=== PATIENT | female | born 1945 | race Caucasian/White ===

== ENCOUNTER 2022-06-21 10:48 | Outpatient (CLI) | payer MEDICARE, SELFPAY ==
[2022-06-21 10:08] LABS: Albumin* 4.4 g/dL (3.3-5.0)
[2022-06-21 10:09] LABS: Chloride* 103 mmol/L (96-114); Potassium* 3.9 mmol/L (3.6-5.1); Sodium* 139 mmol/L (135-149)
[2022-06-21 10:11] LABS: Alkaline Phosphatase* 39 U/L (40-150); Aspartate Amino Transferase* 28 U/L (12-35); Bilirubin Total* 0.6 mg/dL (0.1-1.5); Blood Urea Nitrogen* 12 mg/dL (7-30); Carbon Dioxide* 30 mmol/L (20-32); Cholesterol* 307 mg/dL (90-199); Creatinine* 0.7 mg/dL (0.5-1.5); Estimated Glomerular Filt Rate 91 ml/min; Total Protein* 7.1 g/dL (6.0-8.3)
[2022-06-21 10:12] LABS: Alanine Aminotransferase* 29 U/L (4-35); Calcium* 9.1 mg/dL (8.4-10.6); Glucose* 89 mg/dL (60-115); HDL Cholesterol* 91 mg/dL (>=50); LDL Cholesterol Calculated 189 mg/dL (<100); Triglycerides* 137 mg/dL (40-149)
[2022-06-21 10:19] LABS: Vitamin D 25 Hydroxy* 77 ng/mL (30-80)
== END 2022-06-21 10:49 | disposition home or self-care (01) ==
PROVIDERS: PCP Family Medicine; Visit Provider Family Medicine
DX: Z00.00 Encounter for general adult medical examination without abnormal findings (principal); E78.5 Hyperlipidemia, unspecified; M81.0 Age-related osteoporosis without current pathological fracture
CPT/HCPCS: 80053; 80061; 82306

== ENCOUNTER 2022-06-23 07:57 | Outpatient (CLI) | payer MEDICARE, SELFPAY ==
[2022-06-23 10:16] LABS: C Reactive Protein* < 0.5 mg/dL (0.5-1.0)
== END 2022-06-23 07:58 | disposition home or self-care (01) ==
PROVIDERS: PCP Family Medicine; Visit Provider Family Medicine
DX: Z00.00 Encounter for general adult medical examination without abnormal findings (principal); R30.0 Dysuria; R51.9 Headache, unspecified; E78.5 Hyperlipidemia, unspecified
CPT/HCPCS: 86140; 87086

== ENCOUNTER 2022-07-13 14:12 | Outpatient (CLI) | payer MEDICARE, SELFPAY ==
--- NOTE | 2022-07-13 14:30 | CRLHL7_ITS ---
For Patients: As a result of the Century Cures Act, medical imaging exams and procedure reports are released immediately into your electronic medical record. You may view this report before your referring provider. If you have questions, please contact your health care provider. DXA BONE MINERAL DENSITY STUDY Current height (in): 56.5. Weight (lb): 140.0. Menopause age: 57. Ethnicity: White. 1. Have you had a previous hip or vertebral fracture? No. 2. Have you had any fractures during your adult life which did not result from significant trauma (e.g., auto accident)? No. 3. Did either of your parents have a hip fracture? No. 4. Do you smoke? No. 5. Have you ever taken Glucocorticoids? No. 6. Do you have rheumatoid arthritis? No. 7. Do you have secondary osteoporosis? No. 8. Do you drink 3 or more alcoholic drinks per day? No. 9. Are you being treated for osteoporosis? Yes. 10. Have you ever taken any of the following medications: Actonel, Evista, Fosamax, Miacalcin, Reclast, Boniva, Forteo, HRT (i.e. estrogen/hormone therapy), Protelos, Prolia, Vitamin D, Calcium, other ??? please specify. ANSWER: Yes, Fosamax, vitamin D, calcium. 11. Do you have any of the following medical conditions: Anorexia or bulimia, asthma or emphysema, end stage renal disease, hyperparathyroidism, any seizure disorders, cancer, inflammatory bowel diseases, hysterectomy, other ??? please specify. ANSWER: No. 12. What was your maximum height (inches)? 68. 13. Do you perform weight bearing exercise regularly? Yes. 14. Do you regularly consume dairy products? No. 15. Do you drink caffeinated beverages? Yes. 16. At what age did your period start? 17. 17. Are you premenopausal? No. 18. How many full term pregnancies have you had? 5. 19. Have you ever missed your period for more than 6 months in a row (not including or menopause)? No. TECHNIQUE: Bone mineral density study was performed using the [employer]. FINDINGS: The results of the study expressed as bone mineral density (BMD) are as follows: Lumbar spine L1 to L4: BMD: 0.774 g/cm2. T-score: -2.5. Z-score: -0.1. Neck Left: BMD: 0.716 g/cm2. T-score: -1.2. Z-score: 0.9. Right: BMD: 0.747 g/cm2. T-score: -0.9. Z-score: 1.2. Total Left: BMD: 0.731 g/cm2. T-score: -1.7. Z-score: 0.1. Right: BMD: 0.782 g/cm2. T-score: -1.3. Z-score: 0.5. IMPRESSION: Osteoporosis. *Comparison exams done prior to 10/2019 were performed on different unit, [employer]. COMPARISON: Compared with scan of 02/25/2020, the bone mineral density has increased by 3.3 percent at the spine and increased by 3.7 percent at the hips. Compared with scan of 08/27/2017, the bone mineral density has increased by 0.5 percent at the spine and increased by 12.0 percent at the hip. ROBERTO ROWE MD Diagnostic/Nuclear Medicine Radiologist [email or web address] CY/bhe be/Dictated by: Roberto Rowe MD @ 07/13/2022 9:43:00 PM (Electronically Signed)
== END 2022-07-13 14:13 | disposition home or self-care (01) ==
PROVIDERS: PCP Family Medicine; Visit Provider Family Medicine
DX: M81.0 Age-related osteoporosis without current pathological fracture (principal)
CPT/HCPCS: 77080

== ENCOUNTER 2022-08-11 09:51 | Outpatient (CLI) | payer MEDICARE, SELFPAY ==
--- NOTE | 2022-08-11 10:15 | CRLHL7_ITS ---
For Patients: As a result of the Century Cures Act, medical imaging exams and procedure reports are released immediately into your electronic medical record. You may view this report before your referring provider. If you have questions, please contact your health care provider. BILATERAL SCREENING MAMMOGRAM WITH COMPUTER-AIDED DETECTION AND TOMOSYNTHESIS TECHNIQUE: CC and MLO views were obtained. These mammographic images have been obtained using full-field digital technique. These mammographic images were interpreted with the benefit of computer-aided detection. Breast Tomosynthesis was used in this interpretation. COMPARISON FILM: 02/25/21, 02/25/20, 11/27/18. FINDINGS: There are scattered areas of fibroglandular density IMPRESSION: There is no radiographic evidence for malignancy. ASSESSMENT: BI-RADS Category 1: Negative RECOMMENDATION: Routine screening mammogram in 1 year. A lay language report of this examination will be provided to the patient. Roberto Boo M.D. Diagnostic/Nuclear Medicine Radiologist [email or web address] FRANCISCO J/Dictated by: Roberto Boo MD @ 08/11/2022 10:23:00 AM (Electronically Signed)
== END 2022-08-11 09:52 | disposition home or self-care (01) ==
LOC: MAMMO 09:52
PROVIDERS: PCP Family Medicine; Visit Provider Family Medicine
DX: Z12.31 Encounter for screening mammogram for malignant neoplasm of breast (principal)
CPT/HCPCS: 77063; 77067

== ENCOUNTER 2023-12-12 16:04 | Outpatient (CLI) | payer MEDICARE, SELFPAY | END 2023-12-12 16:05 | disposition home or self-care (01) | LOC: NFLDREF 16:05 | PROVIDERS: PCP Family Medicine; Visit Provider Registered Nurse | DX: R51.9 Headache, unspecified (principal); E78.5 Hyperlipidemia, unspecified | CPT/HCPCS: 86618 ==

== ENCOUNTER 2023-12-14 12:47 | Outpatient (CLI) | payer MEDICARE, SELFPAY ==
--- NOTE | 2023-12-14 13:00 | CRLHL7_ITS ---
For Patients: As a result of the Century Cures Act, medical imaging exams and procedure reports are released immediately into your electronic medical record. You may view this report before your referring provider. If you have questions, please contact your health care provider. INDICATION: Trauma. Headaches. TECHNIQUE: Noncontrast axial CT of the head is submitted. No comparisons. FINDINGS: Mild cerebral atrophy. The ventricles, sulci and gyri are of normal size, shape and contour for age and degree of atrophy. Midline structures are centrally located. No convincing evidence of suspicious intra- or extra-axial fluid collections. Minimal patchy regions of decreased attenuation within the periventricular and subcortical white matter of both cerebral hemispheres. IMPRESSION: 1. No radiographic evidence of acute intracranial abnormalities. 2. Mild cerebral atrophy. 3. Minimal supratentorial white matter changes that are non-specific, but statistically most likely related to chronic small vessel ischemic disease. Please note that all CT scans at this facility use dose modulation, iterative reconstruction, and/or weight-based dosing when appropriate to reduce radiation dose to as low as reasonably achievable. Dictated by Geoff Merritt MD @ 12/14/2023 2:08:00 PM (Electronically Signed)
== END 2023-12-14 12:48 | disposition home or self-care (01) ==
LOC: CT 12:49
PROVIDERS: PCP Family Medicine; Visit Provider Registered Nurse
DX: R51.9 Headache, unspecified (principal); G31.9 Degenerative disease of nervous system, unspecified; S09.90XA Unspecified injury of head, initial encounter
CPT/HCPCS: 70450

== ENCOUNTER 2023-12-21 08:33 | Outpatient (CLI) | payer MEDICARE, SELFPAY | END 2023-12-21 08:34 | disposition home or self-care (01) | LOC: NFLDREF 12-25 15:33 | PROVIDERS: PCP Family Medicine; Referring Provider Family Medicine; Visit Provider Physician Assistant | DX: N39.0 Urinary tract infection, site not specified (principal); B96.20 Unspecified Escherichia coli [E. coli] as the cause of diseases classified elsewhere | CPT/HCPCS: 87086; 87186 ==

== ENCOUNTER 2024-07-11 08:23 | Outpatient (CLI) | payer MEDICARE, SELFPAY | END 2024-07-11 08:24 | disposition home or self-care (01) | PROVIDERS: PCP Registered Nurse; Visit Provider Registered Nurse | DX: E78.5 Hyperlipidemia, unspecified (principal); Z13.29 Encounter for screening for other suspected endocrine disorder | CPT/HCPCS: 80048; 80061; 84443 ==

== ENCOUNTER 2024-07-23 13:54 | Outpatient (CLI) | payer MEDICARE, SELFPAY ==
--- NOTE | 2024-07-23 14:00 | CRLHL7_ITS ---
For Patients: As a result of the Century Cures Act, medical imaging exams and procedure reports are released immediately into your electronic medical record. You may view this report before your referring provider. If you have questions, please contact your health care provider. XR DXA BONE MINERAL DENSITY (BMD) Current height (in): 56.5. Weight (lb): 142.0. Menopause age: 57. Ethnicity: White. Reason for exam: History of osteoporosis. 1. Have you had a previous hip or vertebral fracture? No. 2. Have you had any fractures during your adult life which did not result from significant trauma (e.g., auto accident)? No. 3. Did either of your parents have a hip fracture? No. 4. Do you smoke? No. 5. Have you ever taken Glucocorticoids? No. 6. Do you have rheumatoid arthritis? No. 7. Do you have secondary osteoporosis? No. 8. Do you drink 3 or more alcoholic drinks per day? No. 9. Are you being treated for osteoporosis? Yes. 10. Have you ever taken any of the following medications: Actonel, Evista, Fosamax, Miacalcin, Reclast, Boniva, Forteo, HRT (i.e. estrogen/hormone therapy), Protelos, Prolia, Vitamin D, Calcium, other ??? please specify. ANSWER: Yes, Fosamax, vitamin D, calcium. 11. Do you have any of the following medical conditions: Anorexia or bulimia, asthma or emphysema, end stage renal disease, hyperparathyroidism, any seizure disorders, cancer, inflammatory bowel diseases, hysterectomy, other ??? please specify. ANSWER: No. 12. What was your maximum height (inches)? 68. 13. Do you perform weight bearing exercise regularly? Yes. 14. Do you regularly consume dairy products? No. 15. Do you drink caffeinated beverages? Yes. 16. At what age did your period start? 17. 17. Are you premenopausal? No. 18. How many full-term pregnancies have you had? 5. 19. Have you ever missed your period for more than 6 months in a row (not including or menopause)? No. TECHNIQUE: Bone mineral density study was performed using the [employer]. FINDINGS: The results of the study expressed as bone mineral density (BMD) are as follows: Lumbar spine L1 to L4: BMD: 0.750 g/cm2. T-score: -2.7. Z-score: -0.2 Neck Left: BMD: 0.698 g/cm2. T-score: -1.4. Z-score: 0.8 Right: BMD: 0.674 g/cm2. T-score: -1.6. Z-score: 0.6 Total Left: BMD: 0.758 g/cm2. T-score: -1.5. Z-score: 0.4 Right: BMD: 0.731 g/cm2. T-score: -1.7. Z-score: 0.2 IMPRESSION: Osteoporosis. *Comparison exams done prior to 10/2019 were performed on different unit, [employer]. COMPARISON: Compared with scan of 07/13/2022, the bone mineral density has decreased by 3.1 percent at the spine and decreased by 1.6 percent at the hip. Mal Flores M.D. Diagnostic Radiologist [email or web address] Transcribed: 9:53 am DW/Dictated by: Mal Flores MD @ 07/24/2024 8:41:00 AM (Electronically Signed)
== END 2024-07-23 13:55 | disposition home or self-care (01) ==
PROVIDERS: PCP Registered Nurse; Visit Provider Registered Nurse
DX: M81.0 Age-related osteoporosis without current pathological fracture (principal)
CPT/HCPCS: 77080

== ENCOUNTER 2024-09-30 13:33 | Outpatient (CLI) | payer MEDICARE, SELFPAY ==
--- NOTE | 2024-09-30 13:40 | CRLHL7_ITS ---
For Patients: As a result of the Century Cures Act, medical imaging exams and procedure reports are released immediately into your electronic medical record. You may view this report before your referring provider. If you have questions, please contact your health care provider. INDICATION: BILATERAL SCREENING MAMMOGRAM, ASYMPTOMATIC 79 Y/O FEMALE COMPARISON: 08/11/2022, 02/25/2021, 02/25/2020 TECHNIQUE: Digital mammogram in CC and MLO projections including computer-aided detection (CAD) and tomosynthesis. BREAST COMPOSITION: There are scattered areas of fibroglandular density. FINDINGS: No suspicious findings. ASSESSMENT: BI-RADS 1 Negative RECOMMENDATION: Annual screening mammogram. A lay language report of this examination will be provided to the patient. Dictated by: Mal Flores MD @ 10/01/2024 12:26:48 (Electronically Signed)
== END 2024-09-30 13:34 | disposition home or self-care (01) ==
LOC: MAMMO 13:34
PROVIDERS: PCP Registered Nurse; Visit Provider Registered Nurse
DX: Z12.31 Encounter for screening mammogram for malignant neoplasm of breast (principal)
CPT/HCPCS: 77063; 77067